=== PATIENT | female | born 1950 | race Caucasian/White ===

== ENCOUNTER 2017-02-23 19:59 | Emergency (ER) | payer OTHER ==
[~2017-02-23] VITALS: Ht 167.6 cm; Wt 98.4 kg
[~2017-02-23 19:59] MED LIST: BENADRYL50 MG PO; GLIPIZIDE5 MG PO; HYDROCHLOROTHIA25 MG PO; LEVOTHYROXINE150 MCG PO; METFORMIN HCL1000 MG PO; OMEPRAZOLE20 MG PO; PREDNISONE10 M1 PO; RAMIPRIL5 MG PO; TOPROL XL100 MG PO
[2017-02-23] MEDS ORDERED: TOPROL XL100 MG PO (20:26)
[2017-02-23 20:37] VITALS: BP 150/67
== END 2017-02-23 20:38 | disposition home or self-care (01) ==
LOC: EME 19:59
DX: Z76.0 Encounter for issue of repeat prescription (principal); I10 Essential (primary) hypertension
CPT/HCPCS: 99281; 99284